=== PATIENT | male | born 2000 | race Two or more races ===

== ENCOUNTER 2020-05-21 00:35 | Emergency (ER) | payer MEDICAID, OTHER ==
[~2020-05-21] VITALS: Ht 182.9 cm; Wt 72.6 kg
[2020-05-21 01:08] LABS: Urine WBC None Seen /hpf (0 - 3)
[2020-05-21] MEDS ORDERED: LORazepam 2MG/ML-1ML VIAL IV ONE (01:15)
[2020-05-21] MEDS ORDERED: diphenhdrAMINE HCL 50 MG/1 ML VL IV ONE (01:15)
[2020-05-21] MEDS ORDERED: HALOPERIDOL LACTATE 5 MG/ML INJ VIAL IM ONE (01:15)
[2020-05-21] MEDS ORDERED: SODIUM CHLORIDE 0.9% 2,000 ML IV ONE (01:15)
[2020-05-21 01:26] LABS: Urine Bacteria NONE SEEN /hpf (None Seen); Urine Blood Negative /uL (Negative); Urine Specific Gravity 1.004 (1.001-1.035)
[2020-05-21 01:26] LABS: Basophils # (auto) 0 10 ^3/uL (0-0.2); Basophils % (auto) 0.4 % (0.0-2.0); Eosinophils # (auto) 0 10 ^3/uL (0-0.8); Eosinophils % (auto) 0.2 % (0.0-7.0); Hematocrit 47.6 % (41.0-53.0); Hemoglobin 16.7 g/dL (13.5-17.5); Lymphocytes # (auto) 0.9 10 ^3/uL (0.4-5.4); Lymphocytes % (auto) 9.3 % (10.0-50.0); Mean Corpuscular Hemoglobin 31.3 pg (28.0-32.0); Mean Corpuscular Volume 89.3 fL (80.0-100.0); Monocytes # (auto) 0.7 10 ^3/uL (0-1.3); Monocytes % (auto) 6.5 % (0.0-12.0); Neutrophils # (auto) 8.5 10 ^3/uL (1.6-8.6); Neutrophils % (auto) 83.6 % (37.0-80.0); Platelet Count (auto) 184 10^3/uL (140-450); Red Blood Cells 5.33 10^6/uL (4.5-5.90); White Blood Cell 10.2 10^3/uL (4.4-10.8)
[2020-05-21 01:44] LABS: Albumin 4.5 g/dL (3.4-5.0); Anion Gap 9 (5-15); BUN/Creatinine Ratio 8.8; Blood Alcohol < 3.0 mg/dL (0-5); Blood Urea Nitrogen 7 mg/dL (7-18); Calcium 9.3 mg/dL (8.5-10.1); Carbon Dioxide 26 mmol/L (21-32); Chloride 103 mmol/L (98-107); GFR African American 158 mL/min; GFR Non-African American 131 mL/min; Glucose 99 mg/dL (74-106); Potassium 3.6 mmol/L (3.5-5.1); Salicylate < 1.7 mg/dL (2.8-20.0); Sodium 138 mmol/L (136-145)
[2020-05-21 01:46] LABS: Acetaminophen < 2.0 ug/mL (10-30)
[2020-05-21 01:46] LABS: Alcohol, Urine < 3.0 mg/dL (0-10); Amphetamine Screen, Urine NEGATIVE (NEGATIVE); Barbiturate Scree,Urine NEGATIVE (NEGATIVE); Benzodiazephine Screen, Urine NEGATIVE (NEGATIVE); Cannabinoid Screen, Urine NEGATIVE (NEGATIVE); Cocaine Screen, Urine NEGATIVE (NEGATIVE); Opiate Scree,Urine NEGATIVE (NEGATIVE); Phencyclidine Screen, Urine NEGATIVE (NEGATIVE)
[2020-05-21 01:47] LABS: Alanine Aminotransferase 27 U/L (16-61); Alkaline Phosphatase 86 U/L (45-117); Aspartate Aminotransferase 27 U/L (15-37); Bilirubin, Total 0.9 mg/dL (0.2-1.0); Total Protein 7.9 g/dL (6.4-8.2)
[2020-05-22] MEDS ORDERED: LORazepam 0.5 MG TAB PO ONE (11:15)
[2020-05-22] MEDS ORDERED: OLANZapine 5 MG TAB PO ONE (11:15)
[2020-05-23 13:34] LABS: Basophils # (auto) 0.1 10 ^3/uL (0-0.2); Basophils % (auto) 0.8 % (0.0-2.0); Eosinophils # (auto) 0.1 10 ^3/uL (0-0.8); Eosinophils % (auto) 1.1 % (0.0-7.0); Hematocrit 49.5 % (41.0-53.0); Hemoglobin 16.9 g/dL (13.5-17.5); Lymphocytes # (auto) 1.9 10 ^3/uL (0.4-5.4); Lymphocytes % (auto) 25.9 % (10.0-50.0); Mean Corpuscular Hemoglobin 30.8 pg (28.0-32.0); Mean Corpuscular Hgb Conc. 34.2 g/dL (32.0-36.0); Monocytes # (auto) 0.6 10 ^3/uL (0-1.3); Monocytes % (auto) 7.6 % (0.0-12.0); Neutrophils # (auto) 4.8 10 ^3/uL (1.6-8.6); Neutrophils % (auto) 64.6 % (37.0-80.0); Nucleated Red Blood Cells % 0.9 %; Platelet Count (auto) 192 10^3/uL (140-450); Red Cell Distribution Width 12.4 % (11.8-14.3); White Blood Cell 7.4 10^3/uL (4.4-10.8)
[2020-05-23 13:52] LABS: Albumin 4.4 g/dL (3.4-5.0); Calcium 9.2 mg/dL (8.5-10.1); Potassium 3.8 mmol/L (3.5-5.1)
[2020-05-23 13:55] LABS: Bilirubin, Total 0.7 mg/dL (0.2-1.0); Total Protein 7.5 g/dL (6.4-8.2)
[2020-05-23] MEDS ORDERED: SODIUM CHLORIDE 0.9% 1,000 ML IV ONE ×2 (15:30→16:00)
[2020-05-23 21:35] VITALS: BP 151/102
== END 2020-05-23 21:40 | disposition home or self-care (01) ==
LOC: EDBD 00:35 → EDUNIT# 00:35 → ER 00:39
DX: R41.82 Altered mental status, unspecified (principal); F19.10 Other psychoactive substance abuse, uncomplicated; Z20.828 Contact with and (suspected) exposure to other viral communicable diseases
CPT/HCPCS: 36415; 70450; 71046; 80053; 80307; 80320; 80329; 81001; 82550; 84484; 85025; 93005; 96361; 96372; 96374; 96375; 99285; C9803; J1200; J1630; J2060; U0003

== ENCOUNTER 2024-12-15 02:55 | Emergency (ER) | payer MEDICAID ==
[~2024-12-15] VITALS: Ht 182.9 cm; Wt 84.3 kg
[2024-12-15 03:15] VITALS: BP 130/75; PULSE 135; RESP 18; O2SAT 96
--- NOTE | 2024-12-15 03:34 | ED.PDOC ---
GI ASSESSMENT HPI Comments PT C/O RECTAL DISCOMFORT, BELEIVES THAT HE HAS A TUMOR. DOES NOT KNOW HOW LONG IT HAS BEEN THERE, JUST THAT IT BOTHERS HIM. PT ALSO CONCERNED THAT HIS HR IS HIGH, CURRENTLY 135. PT DENIES USING ANY DRUGS BESIDES MARIJUANA. ADMITS THAT HE IS SCHIZOPHRENIC. DENIES GROSS BLOOD IN TOILET, BLOOD ON TOILET PAPER, ABDOMINAL PAIN, NAUSEA OR VOMITING. Chief Complaint: Rectal Pain Time Seen by MD: 03:05 Reviewed Notes: Nurses Notes, Medications, Allergies Allergies: Coded Allergies: NO KNOWN ALLERGIES (Unverified , 05/21/20) Information Source: Patient Past Medical History PAST MEDICAL HISTORY: Denies Surgical History: Denies all surgeries Family History Family History: Reviewed,noncontributory to illness Social History Smoker: Non-Smoker Alcohol: Unknown Drugs: Other Lives In: Home Constitutional: denies: chills, diaphoresis, fatigue, fever, malaise, sweats, weakness, others EENTM: denies: blurred vision, double vision, ear bleeding, ear discharge, ear drainage, ear pain, ear ringing, eye pain, eye redness, hearing loss, mouth pain, mouth swelling, nasal discharge, nose bleeding, nose congestion, nose pain, photophobia, tearing, throat pain, throat swelling, voice changes, others Respiratory: denies: cough, hemoptysis, orthopnea, SOB at rest, shortness of breath, SOB with excertion, stridor, wheezing, others Cardiovascular: denies: chest pain, dizzy spells, diaphoresis, Dyspnea on exertion, edema, irregular heart beat, left arm pain, lightheadedness, pal pitations, PND, syncope, others Gastrointestinal: reports: rectal pain; denies: abdomen distended, abdominal pain, blood streaked bowels, constipated, diarrhea, dysphagia, difficulty swallowing, hematemesis, melena, nausea, poor appetite, poor fluid intake, rectal bleeding, vomiting, others Genitourinary: denies: burning, dysuria, flank pain, frequency, hematuria, incontinence, penile discharge, penile sore, pain, testicle pain, testicle swell ing, urgency, others Neurological: denies: dizziness, fainting, headache, left sided numbness, left sided weakness, numbness, paresthesia, pre-existing deficit, right sided numbness, right sided weakness, seizure, speech problems, tingling, tremors, weakness, others Musculoskeletal: denies: back pain, gout, joint pain, joint swelling, muscle pain, muscle stiffness, neck pain, others Integumetry: denies: bruises, change in color, change in hair/nails, dryness, laceration, lesions, lumps, rash, wounds, others Allergic/Immunocompromised: denies: Difficulty Healing, Frequent Infections, Hives, Itching, others Hematologic/Lymphatic: denies: anemia, blood clots, easy bleeding, easy bruising, swollen glands, others Endocrine: denies: excessive hunger, excessive sweating, excessive thirst, excessive urination, flushing, intolerance to cold, intolerance to heat, unexplained weight gain, unexplained weight loss, others Psychiatric: denies: anxiety, bipolar disorder, depression, hopeless, panic disorder, schizophrenia, sleepless, suicidal, others Physical Exam General Appearance: No Apparent Distress, Normal HEENT: Pharynx Normal Neck: Full Range of Motion, Non-Tender Respiratory: Lungs Clear, No Respiratory Distress, Normal Breath Sounds Cardiovascular: No Edema, No JVD, No Murmur, No Gallop, Normal Peripheral Pulses, Regular Rate/Rhythm Breast Exam: Deferred Gastrointestinal: No Organomegaly, Non Tender, No Pulsatile Mass, Normal Bowel Sounds, Soft Genitalia: Deferred Pelvic: Deferred Rectal: Hemorrhoids (EXTERNAL NO NOTED BLEEDING OR DRAINAGE), Other (BURNER TENDER PRESENT DURING EXAM) Extremities: Normal capillary refill, Normal inspection, Normal range of motion, Non-tender, No pedal edema Musculoskeletal : Apperance: Normal Neurologic: 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 Was a procedure done?: No GI differential Dx Differential Diagnosis: GI hemorrhage, Inflammatory BD X-Ray, Labs, Meds, VS Vital Signs Date Time Temp Pulse Resp B/P (MAP) Pulse Ox O2 Delivery O2 Flow Rate FiO2 12/15/24 03:15 98.8 135 18 130/75 (93) 96 X-Ray, Labs, Meds, VS Comment EXTERNAL NON STRANGULATED NONINFLAMED NO NOTED BLEEDING. ADVISED TO USE [id number] PREPARATION H FOLLOW LABELED DOSING INSTRUCTIONS. ADVISED TO INCREASE HIS DAILY FIBER AND VEGETABLES AND WATER TO AVOID CONSTIPATION. YOUR PCP WITHIN 1-2 DAYS CONSIDER REFERRAL TO GI IF SYMPTOMS PERSIST OR IF BLEEDING STARTS. ER RETURN PRECAUTIONS GIVEN PATIENT INDICATES UNDERSTANDING AGREES WITH DISCHARGE PLAN OF CARE. Time of 1ST Reevaluation: 04:23 Reevaluation 1ST: Improved Patient Education/Counseling: Diagnosis, Treatment, Prognosis, Need For Follow Up Family Education/Counseling: No Family Present Departure 1 Departure Time of Disposition: 04:23 Impression: Primary Impression: External hemorrhoids without complication Disposition: 01 HOME / SELF CARE / HOMELESS Condition: Stable Discharged With: Self Critical Care Note Critical Care Time?: No Stability Stability form required: MANDY Hicks Dec 15, 2024 03:34
== END 2024-12-15 04:16 | disposition home or self-care (01) ==
LOC: ER 02:55
DX: K64.4 Residual hemorrhoidal skin tags (principal)

== ENCOUNTER 2024-12-16 10:42 | Emergency (ER) | payer MEDICAID ==
[~2024-12-16] VITALS: Ht 175.3 cm; Wt 73.6 kg
--- NOTE | 2024-12-16 10:49 | ED.PDOC ---
History of Present Illness HPI Comments 24-year-old male who comes in with chief complaint off schizophrenia with auditory and visual hallucinations. That patient has been having the symptoms for three days according to the family. There has been no vomiting or diarrhea. At this time the patient he was cooperative and answering questions. He states that he does take some medications but he was not aware of what medications they are. The patient was denying suicidal or homicidal ideation Time Seen by MD: 10:45 Reviewed Notes: Nurses Notes, Medications, Allergies (No allergies to medications) Allergies: Coded Allergies: NO KNOWN ALLERGIES (Unverified , 05/21/20) Information Source: Patient Mode of Arrival: EMS Severity: Moderate Timing: Days Duration: Since onset Prehospital treatment: None Associated signs and symptoms No chest pain no shortness a breath Past Medical History PAST MEDICAL HISTORY: Schizophrenia Surgical History: Denies all surgeries Family History Family History: Reviewed,noncontributory to illness Social History Smoker: Non-Smoker Alcohol: Denies ETOH Use Drugs: Marijuana Lives In: Home Constitutional: denies: chills, diaphoresis, fatigue, fever, malaise, sweats, weakness, others EENTM: denies: blurred vision, double vision, ear bleeding, ear discharge, ear drainage, ear pain, ear ringing, eye pain, eye redness, hearing loss, mouth pain, mouth swelling, nasal discharge, nose bleeding, nose congestion, nose pain, photophobia, tearing, throat pain, throat swelling, voice changes, others Respiratory: denies: cough, hemoptysis, orthopnea, SOB at rest, shortness of breath, SOB with excertion, stridor, wheezing, others Cardiovascular: denies: chest pain, dizzy spells, diaphoresis, Dyspnea on exertion, edema, irregular heart beat, left arm pain, lightheadedness, palpitations, PND, syncope, others Gastrointestinal: denies: abdomen distended, abdominal pain, blood streaked bowels, constipated, diarrhea, dysphagia, difficulty swallowing, hematemesis, melena, nausea, poor appetite, poor fluid intake, rectal bleeding, rectal pain, vomiting, others Genitourinary: denies: burning, dysuria, flank pain, frequency, hematuria, incontinence, penile discharge, penile sore, pain, testicle pain, testicle swelling, urgency, others Neurological: denies: dizziness, fainting, headache, left sided numbness, left sided weakness, numbness, paresthesia, pre-existing deficit, right sided numbness, right sided weakness, seizure, speech problems, tingling, tremors, weakness, others Musculoskeletal: denies: back pain, gout, joint pain, joint swelling, muscle pain, muscle stiffness, neck pain, others Integumetry: denies: bruises, change in color, change in hair/nails, dryness, laceration, lesions, lumps, rash, wounds, others Allergic/Immunocompromised: denies: Difficulty Healing, Frequent Infections, Hives, Itching, others Hematologic/Lymphatic: denies: anemia, blood clots, easy bleeding, easy bruising, swollen glands, others Endocrine: denies: excessive hunger, excessive sweating, excessive thirst, excessive urination, flushing, intolerance to cold, intolerance to heat, unexplained weight gain, unexplained weight loss, others Psychiatric: reports: schizophrenia, others (Hallucinations both auditory and visual); denies: anxiety, bipolar disorder, depression, hopeless, panic disorder, sleepless, suicidal Physical Exam General Appearance: Mild Distress HEENT: Normal ENT Inspection, Pharynx Normal, TMs Normal Neck: Full Range of Motion, Non-Tender, Normal, Normal Inspection Respiratory: Chest Non-Tender, Lungs Clear, No Accessory Muscle Use, No Respiratory Distress, Normal Breath Sounds Cardiovascular: No Edema, No JVD, No Murmur, No Gallop, Normal Peripheral Pulses, Regular Rate/Rhythm Breast Exam: Deferred Gastrointestinal: No Organomegaly, Non Tender, No Pulsatile Mass, Normal Bowel Sounds, Soft Genitalia: Deferred Pelvic: Deferred Rectal: Deferred Extremities: No calf tenderness, Normal capillary refill, Normal inspection, Normal range of motion, Non-tender, No pedal edema Musculoskeletal : Apperance: Normal Neurologic: 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 Was a procedure done?: No Differential Dx Considerations may include: Schizophrenia X-Ray, Labs, Meds, VS Vital Signs Date Time Temp Pulse Resp B/P (MAP) Pulse Ox O2 Delivery O2 Flow Rate FiO2 12/16/24 10:50 98.2 117 16 123/74 (90) 98 Lab Test 12/16/24 11:30 12/16/24 10:46 Range/Units Salicylates Level < 3.0 -30 mg/dL Acetaminophen Level < 2.0 L 10.0-20.0 UG/ML Plasma/Serum Blood Alcohol 4.6 <10 mg/dL Urine Opiates Screen Neg NEGATIVE Urine Fentanyl Screen Neg NEGATIVE Urine Barbiturates Screen Neg NEGATIVE Urine Phencyclidine Screen Neg NEGATIVE Urine Amphetamines Screen Neg NEGATIVE Urine Benzodiazepines Screen Neg NEGATIVE Urine Cocaine Screen Neg NEGATIVE Urine Cannabinoids Screen Pos NEGATIVE Current Medications Medications (Trade) Dose Ordered Sig/Camryn Route Start Time Stop Time Status Last Admin Haloperidol Lactate (Haldol) 10 mg ONCE ONCE IM 12/16/24 16:45 12/16/24 16:46 DC 12/16/24 17:09 Diphenhydramine HCl (Benadryl Injection) 50 mg ONCE ONCE IM 12/16/24 16:45 12/16/24 16:46 DC 12/16/24 16:50 Lorazepam (Ativan Inj) 2 mg ONCE ONCE IM 12/16/24 16:45 12/16/24 16:46 DC 12/16/24 17:08 At this time the patient was medically cleared and can have his telemedicine psych consult After evaluation it was recommended that the patient be placed on a 5150. The patient then got very bizarre and belligerent. We did have to call security to restrain him. The patient was then placed on a gurney and placed in four-point restraints. We did give the patient Haldol 10 mg IM as well as Benadryl 50 mg IM and Ativan 2 mg IM The urine tox is positive for marijuana but otherwise negative The alcohol level is negative The acetaminophen level and salicylate level are negative At this time, the patient will be signed out to Dr. Grullon The patient was mother has been at his side during the event where he became very belligerent Time of 1ST Reevaluation: 17:18 Reevaluation 1ST: Unchanged Patient Education/Counseling: Diagnosis, Treatment, Prognosis Family Education/Counseling: Diagnosis, Treatment Departure 1 Departure Time of Disposition: 17:17 Impression: Primary Impression: Acute psychosis Disposition: 30 STILL A PATIENT Condition: Fair Critical Care Note Critical Care Time?: No Stability Stability form required: Yes Stable for transfer: Intended for transfer, To designated facility Heart Score Heart Score: Heart Score Response (Comments) Value History N/A 0 EKG N/A 0 Age N/A 0 Risk Factors N/A 0 Troponin N/A 0 Total 0 I personally scribed for PRETTY FIGUEROA MD ([email or web address]) on 12/16/24 at 13:06. Electronically submitted by Cindy Baxter ([email or web address]). PRETTY FIGUEROA MD Dec 16, 2024 10:49
[2024-12-16 12:21] LABS: Acetaminophen < 2.0 UG/ML (10.0-20.0); Salicylate < 3.0 mg/dL (-30)
[2024-12-16 13:11] LABS: Amphetamine Screen, Urine Neg (NEGATIVE); Barbiturate Scree,Urine Neg (NEGATIVE); Benzodiazephine Screen, Urine Neg (NEGATIVE); Cannabinoid Screen, Urine Pos (NEGATIVE); Cocaine Screen, Urine Neg (NEGATIVE); Opiate Scree,Urine Neg (NEGATIVE); Phencyclidine Screen, Urine Neg (NEGATIVE)
[2024-12-16] MEDS: OLANZapine 5 MG TAB PO ONE (14:30)
[2024-12-16] MEDS ORDERED: LORazepam 2MG/ML-1ML VIAL IM PRN (14:41)
--- NOTE | 2024-12-16 14:41 | DVHINCON2 ---
Date of Service if different f: Dec 16, 2024 Time of Service: 13:59 Consultation ([facility]) Consulting Physician: PUJA CANCHOLA MD Labs Laboratory Tests Test 12/16/24 10:46 12/16/24 11:30 Urine Opiates Screen Neg (NEGATIVE) Urine Fentanyl Screen Neg (NEGATIVE) Urine Barbiturates Screen Neg (NEGATIVE) Urine Phencyclidine Screen Neg (NEGATIVE) Urine Amphetamines Screen Neg (NEGATIVE) Urine Benzodiazepines Screen Neg (NEGATIVE) Urine Cocaine Screen Neg (NEGATIVE) Urine Cannabinoids Screen Pos (NEGATIVE) Salicylates Level < 3.0 mg/dL (-30) Acetaminophen Level < 2.0 UG/ML (10.0-20.0) Plasma/Serum Blood Alcohol 4.6 mg/dL (<10) Appearance: Stated age Psychomotor activity: Agitated Behavioral: Cooperative Eye contact: Intense Speech: WNL Affect: Labile Mood: Neutral Thought processes: Linear/Goal-directed Thought content: Hallucinations Suicidal ideations: Absent Homicidal ideations: Absent Orientation: Person, Place, Time, Situation Memory intact: Recent Intellect: Average Abstractability: WNL Concentration: Adequate Attention: Adequate Judgement: Poor Insight: Poor Vitals Vital Signs Date Time Temp Pulse Resp B/P (MAP) Pulse Ox O2 Delivery O2 Flow Rate FiO2 12/16/24 10:50 98.2 117 16 123/74 (90) 98 Treatment plan discussed: With staff, Family Medication adjusted: Yes Labs ordered: No Psychotherapy provided: No Type: Voluntary History of Present Illness Reason for Consult : psychiatric evaluation PER ED PHYSICIAN: 24-year-old male who comes in with chief complaint off schizophrenia with auditory and visual hallucinations. That patient has been having the symptoms for three days according to the family. There has been no vomiting or diarrhea. At this time the patient he was cooperative and answering questions. He states that he does take some medications but he was not aware of what medications they are. The patient was denying suicidal or homicidal ideation PSYCHIATRIST HPI: The patient was seen and evaluated at [facility] ED via telepsychiatry platform. 24yr old male reported that things are going okay for him. He stated he doesn't feel like he is sick. He reported he takes Rexulti 50mg (mother confirmed he takes 3mg rexulti) and seroquel 50mg at bedtime. He denied having auditory or visual hallucinations and denied being suicidal or homicidal. Collateral information from Mother Norma [phone]: His mother reported that he started acting bizarre on Wednesday 12/13. She feels like he is starting a psychotic episode. She noted that he has been hearing voices, has been in the showers for a long time. She noted that when he gets a full blown psychosis, he will stay up late, go into his younger siblings (5,7,10) naked to play with them. She stated that he tells her that he can hear her breathing and hear her thoughts. He has been talking to himself and sleeping less. She is fearful that her children will be harmed. Past Psychiatric History: diagnosed with schizophrenia at age 19. Hospitalized twice. No past suicide attempts. Current psych medications: Seroquel 50 mg qhs, Rexulti 3mg qhs Past Medical History : none NKDA Substance use: Smokes MJ "whenever I feel like it", Denied use of alcohol or other substances Social History : Lives in [place] with parents and three adopted siblings. Attends college. Works for [employer]. Never . DIAGNOSIS: SCHIZOPHRENIA Formulation: This 24 yr old male appears to suffer from schizophrenia and likely is having a psychotic break. He is a danger to his family with this psychosis and warrants involuntary hold and hospitalization. He may benefit from starting Zyprexa to help control his psychosis. Plan: 1. Safety. The patient is a low risk for self harm and may be managed as an outpatient. 2. Legal-initiate involuntary hold for danger to others. Monitor for safety. 3. Medications: Recommend starting Zyprexa 10mg BID, first dose now. Ativan 2mg q6hr prn agitation. 4. Case discussed with ED Physician Sharath Gu. 5. Please recontact psychiatry for further follow up or reevaluation. Assessment/Diagnosis/Plan Reviewed: Labs, Medications, Previous Orders PUJA CANCHOLA MD Dec 16, 2024 14:00
[2024-12-16] MEDS: diphenhdrAMINE HCL 50 MG/1 ML VL IM ONE (16:50)
[2024-12-16] MEDS: HALOPERIDOL LACTATE 5 MG/ML INJ VIAL ONE (17:04)
[2024-12-16] MEDS: diphenhdrAMINE HCL 50 MG/1 ML VL ONE (17:04)
[2024-12-16] MEDS: LORazepam 2MG/ML-1ML VIAL ONE (17:05)
[2024-12-16] MEDS: LORazepam 2MG/ML-1ML VIAL IM ONE (17:08)
[2024-12-16] MEDS: HALOPERIDOL LACTATE 5 MG/ML INJ VIAL IM ONE (17:09)
[2024-12-16 18:15] VITALS: PULSE 115; RESP 13; O2SAT 98
[2024-12-16 19:30] VITALS: PULSE 94; RESP 17; O2SAT 97
[2024-12-16 23:55] VITALS: PULSE 79; RESP 19; O2SAT 97
[2024-12-17] MEDS: OLANZapine 5 MG TAB PO SCH (09:10)
[2024-12-17 09:22] VITALS: PULSE 114; RESP 22; O2SAT 97
[2024-12-17 19:30] VITALS: PULSE 130; RESP 16; O2SAT 97
[2024-12-18] MEDS: LORazepam 2MG/ML-1ML VIAL IM PRN (03:52)
[2024-12-18 08:00] VITALS: PULSE 97; RESP 18; O2SAT 97
[2024-12-18 20:05] VITALS: BP 154/97; PULSE 120; RESP 14; TEMP 97.9; O2SAT 95
== END 2024-12-18 20:42 | disposition short-term general hospital (02) ==
LOC: ER 10:42 → EDBD 10:42 → ER 12-18 20:09
DX: F23 Brief psychotic disorder (principal); Z79.899 Other long term (current) drug therapy
CPT/HCPCS: 36415; 80307; 80320; 80329; 96372; 99285; J1200; J1630; J2060